=== PATIENT | male | born 1985 ===

== ENCOUNTER 2024-05-27 12:42 | Day surgery (SDC) | payer OTHER ==
[2024-05-27 13:06] VITALS: TEMP 97
[2024-05-27] MEDS: LACTATED RINGERS 1,000 ML BAG IV STA (13:14)
[2024-05-27] MEDS: ONDANSETRON 4 MG/2 ML VIAL IVP STA (13:15)
[2024-05-27] MEDS: DEXAMETHASONE SOD PHOSPHATE 4 MG/ML 1 ML VIAL IVP PRN (13:15)
[2024-05-27] MEDS: IV FLUID CONTINUATION 1,000 ML IV ONE (13:36)
[2024-05-27] MEDS: MIDAZOLAM 2 MG/2 ML VIAL IV ONE (14:14)
--- NOTE | 2024-05-27 14:27 | P.ANPRN ---
Procedure Note - Anesthesia - Nerve Block Performed Right Popliteal Single Time Out Performed: Yes Date of Procedure: 05/27/24 Procedure Start Time: 14:02 Procedure Stop Time: 14:07 Location of Patient: PreOp Indication: Acute Post-Operative Pain, Analgesia, Requested by Surgeon Sedation Type: Sedate with meaningful contact maintained Preparation: Sterile Prep Position: Left Lateral Catheter: None Needle Types: Pajunk Needle Gauge: 21 Ultrasound used to visualize needle placement: Yes Ultrasound used to observe medication spread: Yes Injectate: 0.5% Ropivacaine (see comment for volume) (Ropiv 20ml+[id number]) Blood Aspirated: No Pain Paresthesia on Injection Noted: No Resistance on Injection: Normal Image Stored and Saved: Yes Events: Uneventful and Well Tolerated
--- NOTE | 2024-05-27 14:28 | P.ANPRN ---
Procedure Note - Anesthesia - Nerve Block Performed Right Adductor Canal Single Time Out Performed: Yes Date of Procedure: 05/27/24 Procedure Start Time: 14:07 Procedure Stop Time: 14:12 Location of Patient: PreOp Indication: Acute Post-Operative Pain, Analgesia, Requested by Surgeon Sedation Type: Sedate with meaningful contact maintained Preparation: Sterile Prep Position: Supine Catheter: None Needle Types: Pajunk Needle Gauge: 21 Ultrasound used to visualize needle placement: Yes Ultrasound used to observe medication spread: Yes Injectate: 0.5% Ropivacaine (see comment for volume) (Ropiv 20ml+Decadron 4mg)
[2024-05-27] MEDS ORDERED: LIDOCAINE 1% INJ 10MG/ML (20 ML MDV) ONE (15:55)
[2024-05-27] MEDS ORDERED: fentaNYL (PF) 50 MCG/ML 2 ML AMP ONE (15:55)
[2024-05-27] MEDS ORDERED: LIDOCAINE 4% LTA KIT (4 ML) TOPICAL ONE (15:55)
[2024-05-27] MEDS ORDERED: SUCCINYLCHOLINE CHLORIDE 200 MG/10 ML VIAL IV ONE (15:55)
[2024-05-27] MEDS ORDERED: ROPIVACAINE 5 MG/ML 30 ML VIAL ONE (15:55)
[2024-05-27] MEDS ORDERED: PROPOFOL 10 MG/ML 20 ML VIAL IV ONE (15:55)
[2024-05-27] MEDS ORDERED: DEXAMETHASONE SOD PHOSPHATE 4 MG/ML 1 ML VIAL ONE (15:55)
[2024-05-27] MEDS: SODIUM CHLORIDE 0.9% 50 ML with ceFAZolin 2,000 MG IV ONE (15:59)
[2024-05-27] MEDS: ceFAZolin 1,000 MG in SODIUM CHLORIDE 0.9% 1,000 ML IRRIGATION ONE (16:24)
[2024-05-27] MEDS: LACTATED RINGERS 1,000 ML IV ONE (16:55)
--- NOTE | 2024-05-27 17:30 | P.OP ---
Date of Procedure: 05/27/24 Preoperative Diagnosis: Achilles tendon rupture right ankle Postoperative Diagnosis: same Procedure(s) Performed: open repair of right Achilles tendon rupture Implants: Arthrex 3.9 mm suture tack anchors x 2 Anesthesia: JANINE Surgeon: Jean Khan Estimated Blood Loss (ml): 5 Pathology: none sent Condition: stable Disposition: PACU Description of Procedure: Prior to the patient being brought to the operative room, anesthesia administered nerve block on the affected lower extremity. The patient was then brought into the operating room in the supine position. Anesthesia induced the patient and placed them under general anesthetic. The patient was rolled onto the operating table in the prone position with appropriate padding in the thoracic area, any bony prominences as well as the face. When anesthesia was satisfied with positioning, a well-padded tourniquet was placed on the operative thigh. The operative leg was prepped and draped usual manner. The leg was exsanguinated and the tourniquet inflated to 250 mmHg. Attention directed over the posterior aspect of the ankle, where the palpable defect in the Achilles tendon rupture was noted. A straight linear incision was made over the proximal stump of the rupture. The incision was deepened down to the subcutaneous tissue careful to identify, avoid, and retract any neurovascular structures and cauterize any bleeding vessels. Blunt dissection was carried down to the peritenon. The peritenon was incised and reflected medially and laterally to expose the rupture. The proximal stump of the tendon was then bluntly dissected away from the peritenon. A ring forcep was then used to grasp the proximal stump of the tendon and pulled distally. The Arthrex PARS Achilles jig was inserted on either side of the tendon deep to the peritenon. A needle was placed in the #1 slot to lock the tendon in place. #2 needle was passed with a repair suture. #3 was a loop stitch. #4 was a loop stitch with the loop on the opposite side. And 5 was a regular repair stitch. Then the jig was pulled distally to pull the suture through and along the tendon and out the surgical site. Utilizing the shuttle sutures, the blue repair stitch was passed from medial to lateral to lock the stitch in place. Then distal tension was placed all the sutures to take out any creep in the suture and to ensure that there was firm hold on the tendon. Small stab incisions were made through the skin on the medial and lateral aspects of the Achilles insertion on the calcaneus. These incisions are taken directly down to the bone. Drilling for the swivel locks was performed in the holes tapped. A suture passer was then placed through the incisions at the insertion, and fed through the distal stump of the tendon so that the loop captured the suture on the respective sides of the repair. The sutures then pulled through the distal stump of the tendon and out the stab incision. The suture was passed through the 3.9 mm swivel lock anchor inserted into the drill hole while holding the tendon and suture under tension. The swivel lock was inserted into the drill hole locking the suture in place. This process was repeated on the opposite side. Once completed there was communication of the tendon. Phillips's test was negative. The wound is then thoroughly irrigated with antibiotic saline. The peritenon was repaired with 3- 0 Monocryl. Subcutaneous closure was done with 3-0 Monocryl. The larger incision was closed with 4-0 Stratafix in a running subcuticular manner. Dermal glue was applied over all the incisions and then covered Steri-Strips. Jumpstart dressing was placed over the incision then a dry sterile bandage was applied to the leg. The tourniquet was released and capillary refill return to all digits on the foot. The patient's placed a below-knee fracture boot with 1- 1/2 inches of heel lift. The patient was then placed in the supine position back on the transfer table where anesthesia was reversed and taken recovery with vital signs stable
[2024-05-27 17:48] VITALS: RESP 18
[2024-05-27 18:06] VITALS: BP 136/83; PULSE 71
== END 2024-05-27 18:29 | disposition home or self-care (01) ==
LOC: OR 12:42
PROVIDERS: ATTEND Podiatrist
DX: S86.011A Strain of right Achilles tendon, initial encounter (principal); X58.XXXA Exposure to other specified factors, initial encounter
CPT/HCPCS: 27650; J2250; J1100; J2405; J0690; 64445; 64447